=== PATIENT | male | born 1980 | race Caucasian/White ===

== ENCOUNTER 2023-02-03 01:49 | Day surgery (SDC) | payer BC, SELFPAY ==
[2023-01-23 13:55] VITALS: BMI 28.1
[2023-02-03 11:42] VITALS: BP 124/82; PULSE 50; RESP 20; TEMP 36.1; O2SAT 100
--- NOTE | 2023-02-03 11:54 | PM.HPGS ---
History of Present Illness History of Present Illness Consent: Risks, benefits, and alternatives have been discussed and questions answered. Patient agrees to proceed with procedure. Chief complaint: family hx colon polyps Narrative: Eliceo Kearney is a 42 year old male Presents for colonoscopy. Patient's current weight appetite and bowel movements are normal. Patient denies abdominal pain. He has had no bleeding. Family history is significant that his mother had colon polyps. Paternal grandmother and maternal grandfather both have had colon cancer. Patient presents for neoplasia screening colonoscopy. Review of Systems Review of Systems: Review of systems noncontributory. TAMERA Family History Family History (Updated 02/04/17 @ 08:08 by DOCTOR UNKNOWN) Mother Diabetes mellitus Asthma Father Family history of mental disorder Social History Social History (Updated 10/15/20 @ 12:51 by Jocelin Kerr) Smoking status: Never smoker Alcohol intake: current Drinks per week: 1 Substance use: never Living arrangements: with family Occupation/Education: occupation Additional occupation/education comments: [employer] Gender identity (if verbalized by the patient): Male Spiritual care concerns: No Meds Home Medications and Allergies Home Medications Medication Instructions Recorded Confirmed Type sodium,potassium,mag sulfates 17.5 See Rx Instructions PO .COMPLEX 01/12/23 Rx gram-3.13 gram-1.6 gram oral soln #354 mL (Suprep Bowel Prep Kit) Allergies Allergy/AdvReac Type Severity Reaction Status Date / Time Sulfa (Sulfonamide Allergy Unknown Verified 01/23/23 13:57 Antibiotics) Vital Signs Vital Signs - 24 hr 02/03/23 11:42 Temperature 97.0 F L Pulse Rate 50 L Respiratory Rate 20 Blood Pressure 124/82 Pulse Oximetry 100 Oxygen Delivery Room Air Exam Narrative: Physical exam reveals patient to be alert. Vital signs stable. HEENT exam is unremarkable. Patient is anicteric. Lungs are clear to auscultation and percussion. Heart is without murmur or extra sounds. Abdomen bowel sounds are present soft nontender with no organomegaly. Digital external rectal exam is normal. Assessment and Plan Assessment and plan (1) Family history of colonic polyps: Code(s): Z83.71 - Family history of colonic polyps Status: Acute Assessment and Plan: Patient presents today for screening colonoscopy. Family history is significant as mother has had colon polyps in 2 grandparents have had colon cancer.
[2023-02-03] MEDS: LACTATED RINGERS 1,000 ML 150 ML IV CONT (11:58)
--- NOTE | 2023-02-03 12:24 | P.PNAN_ITS ---
Anes - Initial Pre Proc Eval Procedure: Operation Date: 02/03/23 13:00 Proposed Procedures p Colonoscopy - Maulik Leonard MD Date/Time: 02/03/23 12:24 Surgeon: Maulik Leonard MD Pre Op Diagnosis: family hx colon polyps Patient Data Age: 42 Gender: M Height: 1.8 m Weight: 91.6 kg Last Vital Signs Temp 97.0 F L 02/03/23 11:42 Pulse 50 L 02/03/23 11:42 Resp 20 02/03/23 11:42 BP 124/82 02/03/23 11:42 Pulse Ox 100 02/03/23 11:42 O2 Del Method Room Air 02/03/23 11:42 Allergies Allergy/AdvReac Type Severity Reaction Status Date / Time Sulfa (Sulfonamide Allergy Unknown Verified 02/03/23 12:01 Antibiotics) Patient hx anesthesia problems: none Family hx anesthesia problems: none Results Review: All pre-operative results and documents have been reviewed as part of the pre- operative evaluation. [facility] Family History Family History (Updated 02/04/17 @ 08:08 by DOCTOR UNKNOWN) Mother Diabetes mellitus Asthma Father Family history of mental disorder Social History Social History (Updated 10/15/20 @ 12:51 by Jocelin Kerr) Smoking status: Never smoker Alcohol intake: current Drinks per week: 1 Substance use: never Living arrangements: with family Occupation/Education: occupation Additional occupation/education comments: [employer] Gender identity (if verbalized by the patient): Male Spiritual care concerns: No Anes - Eval Final PreProcedure Day of Procedure 02/03/23 12:24 Patient weight: overweight Heart: regular rate and rhythm Lungs: clear to auscultation Neurological: alert and oriented Last oral intake: >/= 8 hours ASA classification: II Emergent: no Anesthetic plan: proceed Anesthesia type and monitoring: general GIVS and standard monitoring Results Review: All pre-operative results and documents have been reviewed as part of the pre- operative evaluation. Informed Consent: The patient's anesthetic plan and its attendant risks and benefits were discussed with the patient/family/POA. Questions were solicited and answers provided to the satisfaction of the patient/family/POA.
[2023-02-03 13:41] VITALS: BP 90/57; PULSE 56; RESP 17; O2SAT 97
[2023-02-03 13:51] VITALS: BP 107/75; PULSE 55; RESP 18; O2SAT 99
[2023-02-03 14:01] VITALS: BP 108/71; PULSE 50; RESP 15; O2SAT 100
== END 2023-02-03 14:09 | disposition home or self-care (01) ==
PROVIDERS: PCP Physician Assistant; Visit Provider Internal Medicine Gastroenterology
PROC: 0DJD8ZZ Inspection of Lower Intestinal Tract, Via Natural or Artificial Opening Endoscopic (ICD-10-PCS; CPT 45378; principal; 2023-02-03 13:00)
DX: Z12.11 Encounter for screening for malignant neoplasm of colon (principal); K64.8 Other hemorrhoids; Z83.71 Family history of colonic polyps
CPT/HCPCS: 45378; J2704; J7120

== ENCOUNTER 2023-05-16 08:50 | Emergency (ER) | payer BC, SELFPAY ==
--- NOTE | ~2023-05-16 | XR_ITS ---
XR chest 2V DATE: 05/16/2023 09:06 INDICATION: Cough, shortness of breath TECHNIQUE: PA and lateral views COMPARISON: None FINDINGS: Normal heart size. No hilar or mediastinal enlargement. There is patchy left lower lobe infiltrate, suggesting left lower lobe pneumonia. The remaining lung marr are clear. No pleural effusion or pulmonary vascular congestion or pneumothorax is detected. IMPRESSION: Patchy left lower lobe infiltrate Reviewed, dictated and finalized at location A.
[2023-05-16 08:58] VITALS: BP 128/88; PULSE 85; RESP 16; TEMP 36.2; O2SAT 94
--- NOTE | 2023-05-16 09:00 | ED.URI ---
HPI - URI/Sore Throat General Chief Complaint: Upper Respiratory Infection Stated Complaint: Trouble breathing Time Seen by Provider: 05/16/23 09:03 Source: patient, RN notes reviewed and old records reviewed Mode of arrival: ambulatory Limitations: no limitations History of Present Illness HPI Narrative: 42-year-old male presents to the [facility] with complaints of cough and shortness of breath. Symptoms started a couple of weeks ago. States they been gradually getting worse. Denies any fevers, chest pain, abdominal pain. Had seen his doctor mid April. States yesterday he called his primary care provider and they just called in a different antibiotic and a steroid. Patient states he has been using his albuterol nebulizer more often, only has 3 ampules left, requesting a refill. Per medical record had been prescribed amoxicillin 875 twice a day on May 04. Yesterday was prescribed doxycycline and prednisone from his primary care provider at [facility]. Onset (ago): week(s) Related Data Allergies Allergy/AdvReac Type Severity Reaction Status Date / Time Sulfa (Sulfonamide Allergy Unknown Verified 02/03/23 12:01 Antibiotics) Review of Systems Review of Systems: All systems reviewed & are unremarkable except as noted in HPI and below Constitutional: Constitutional: Reports no additional constitutional complaints Eyes: Eyes: Reports no additional eye complaints ENT: Reports system reviewed and no additional complaints, except as documented Cardiovascular: Cardiovascular: Reports no additional cardiovascular complaints, Denies chest pain and Denies dyspnea Respiratory: Respiratory: Reports as per HPI, Reports chest congestion, Reports cough, Reports dyspnea and Reports dyspnea on exertion Gastrointestinal: Gastrointestinal: Reports no additional gastrointestinal complaints, Denies abdominal pain, Denies nausea and Denies vomiting Musculoskeletal: Musculoskeletal: Reports no additional musculoskeletal complaints Integumentary/Breasts: Skin/Breast: Reports system reviewed and no additional complaints, except as docu Neurologic: Reports system reviewed and no additional complaints, except as documented Psychiatric: Psychiatric: Reports no additional psychiatric complaints Allergic/Immunologic: Allergic/Immunologic: Reports no additional allergic/immunologic complaints PMF Past Medical History Medical History Asthma Family History Family History Mother Diabetes mellitus Asthma Father Family history of mental disorder Social History Social History Smoking status: Never smoker Alcohol intake: current Drinks per week: 1 Substance use: never Living arrangements: with family Occupation/Education: occupation Additional occupation/education comments: [employer] Gender identity (if verbalized by the patient): Male Spiritual care concerns: No Comments At the time of my signature, I reviewed and agree with the nursing past medical, surgical, social, and family history. There is no relevant family history pertinent to the patient complaint. Exam Const: General: cooperative, healthy appearing, comfortable, no acute distress, well developed, alert and well nourished Nutritional Appearance: well nourished Orientation/consciousness: patient oriented x3 Limitations: no limitations HENMT: Head: normal to inspection Ears: hearing grossly normal bilaterally, external ears normal, TM's normal bilaterally, EAC's normal, mastoids normal and no periauricular adenopathy Face/Nose/Sinus: Normal external nose present, Normal nares present, Normal nasal mucous membranes and turbinates present, normal facial exam and face symmetric Face and sinus: normal facial exam and face symmetric Mouth: Yes Normal oral and palatal mucos
== END 2023-05-16 09:19 | disposition home or self-care (01) ==
PROVIDERS: Emergency Provider Nurse Practitioner; PCP Physician Assistant
DX: J18.1 Lobar pneumonia, unspecified organism (principal); J45.909 Unspecified asthma, uncomplicated
CPT/HCPCS: 71046; 99213; G0463

== ENCOUNTER 2023-05-27 13:46 | Outpatient (CLI) | payer BC, SELFPAY ==
--- NOTE | ~2023-05-27 | XR_ITS ---
EXAMINATION: XR chest 2V DATE: 05/27/2023 13:56 INDICATION: Cough. TECHNIQUE: Frontal and lateral views of the chest were obtained. COMPARISON: Chest 2 views 05/16/2023 FINDINGS: There are mild airspace opacities in left lower lobe. No pleural effusion or pneumothorax. The heart size is normal. IMPRESSION: 1. Mild airspace opacities in left lower lobe with interval improvement, consistent with pneumonia. Reviewed, dictated and finalized at location E. S WASHER IMPRESSION: 1. Mild airspace opacities in left lower lobe with interval improvement, consis tent with pneumonia.
== END 2023-05-27 13:47 ==
PROVIDERS: PCP Physician Assistant; Visit Provider Physician Assistant
DX: R05.9 Cough, unspecified (principal); J98.4 Other disorders of lung
CPT/HCPCS: 71046

== ENCOUNTER 2023-07-18 01:47 | Emergency (ER) | payer BC, SELFPAY ==
--- NOTE | ~2023-07-18 | CT_ITS ---
EXAMINATION: CT cervical spine wo con DATE: 07/18/2023 02:25 INDICATION: Neck injury. Fall. TECHNIQUE: Computed tomography (CT) of the cervical spine was performed without intravenous contrast. Automated exposure control and iterative reconstruction technique were employed. The dose-length pro duct was 471.59 mGy-cm. COMPARISON: None FINDINGS: Bone alignment is normal. Vertebral body heights are normal. There is moderately decreased disc height at C5-C6 and C6-C7. The following disc levels are specifically discussed: C2-C3: There is mild bilateral uncovertebral joint osteoarthritis. There is mild bilateral facet join t osteoarthritis. There is no neural foraminal stenosis. There is no central canal stenosis. C3-C4: There is mild bilateral uncovertebral joint osteoarthritis. There is mild bilateral facet join t osteoarthritis. There is no neural foraminal stenosis. There is no central canal stenosis. C4-C5: There is mild bilateral uncovertebral joint osteoarthritis. There is mild bilateral facet join t osteoarthritis. There is no neural foraminal stenosis. There is no central canal stenosis. C5-C6: There is severe bilateral uncovertebral joint osteoarthritis. There is mild bilateral facet perlita int osteoarthritis. There is mild bilateral neural foraminal stenosis. There is mild central canal st enosis. C6-C7: There is severe bilateral uncovertebral joint osteoarthritis. There is moderate bilateral face t joint osteoarthritis. There is mild bilateral neural foraminal stenosis. There is mild central magda l stenosis. C7-T1: There is no uncovertebral joint osteoarthritis. There is moderate right and mild left facet perlita int osteoarthritis. There is no neural foraminal stenosis. There is no central canal stenosis. IMPRESSION: 1. No fracture. 2. Moderate cervical spondylosis. Reviewed, dictated and finalized at location A. CHER FEEDER
--- NOTE | ~2023-07-18 | CT_ITS ---
EXAMINATION: CT brain wo con DATE: 07/18/2023 02:24 INDICATION: Syncope. TECHNIQUE: Computed tomography (CT) of the head was performed without intravenous contrast. The mA wa s adjusted according to patient size. Iterative reconstruction technique was employed. The dose-lengt h product was 1210.67 mGy-cm. COMPARISON: None FINDINGS: There is no intracranial hemorrhage, acute infarction, or abnormal intracranial mass lesion . The ventricles are normal in size. The mastoid air cells are normal. There is mucosal thickening in the paranasal sinuses. The orbits are normal. IMPRESSION: 1. Normal brain. Reviewed, dictated and finalized at location A. DISTRIBUTION CLERK IMPRESSION: 1. Normal brain.
[2023-07-18 02:02] VITALS: BP 132/94; PULSE 91; RESP 17; TEMP 36.1; O2SAT 100
--- NOTE | 2023-07-18 02:08 | ED.GENADULT ---
HPI - General Adult General Chief complaint: Alcohol Stated complaint: ETOH Time Seen by Provider: 07/18/23 01:48 History of Present Illness HPI narrative: Patient prefer old gentleman presents to emergency department with chief complaint of head injury and alcohol intoxication per the family the patient had been drinking this evening with friends fell the way back home and had a abrasion to his forehead patient was brought home and had 2 more falls and was very slow to respond. EMS was called the patient was transported to the emergency department. Per the family the patient had positive loss of consciousness with the episodes occurred Related Data Allergies Allergy/AdvReac Type Severity Reaction Status Date / Time Sulfa (Sulfonamide Allergy Unknown Verified 02/03/23 12:01 Antibiotics) Review of Systems Review of Systems: A 10 system review of systems was completed on the patient and is negative except for what is stated in the HPI. Nursing and ancillary documentation was reviewed. [facility] Past Medical History Medical History Asthma Family History Family History Mother Diabetes mellitus Asthma Father Family history of mental disorder Social History Social History Smoking status: Never smoker Alcohol intake: current Drinks per week: 1 Substance use: never Living arrangements: with family Occupation/Education: occupation Additional occupation/education comments: [employer] Gender identity (if verbalized by the patient): Male Spiritual care concerns: No Exam Narrative: GENERAL: Well-appearing, well-nourished, and in no acute distress. HEAD: Normocephalic, contusion/abrasion to the right forehead EYES: PERRLA and EOMI. ENT: Nares clear, no rhinorrhea or epistaxis. Mucous membranes moist. NECK: Supple. CHEST: Clear to auscultation. No respiratory distress. HEART: Regular rate and rhythm. No murmur heard. Normal peripheral pulses. ABDOMEN: Soft, nontender, nondistended, normal active bowel sounds. EXTREMITIES: Normal range of motion. No edema. SKIN: Warm, dry, no rash. NEURO: No focal deficits. Alert answering questions repeating answers slurred words GCS 14. PSYCH: Normal mood and affect. Course Vital Signs Vital signs: Vital Signs Temperature 36.1 C L 07/18/23 02:02 Pulse Rate 91 07/18/23 02:02 Respiratory Rate 17 07/18/23 02:02 Blood Pressure 132/94 H 07/18/23 02:02 Pulse Oximetry 100 07/18/23 02:02 Oxygen Delivery Room Air 07/18/23 02:02 Temperature 36.1 C L 07/18/23 02:02 Pulse Rate 91 07/18/23 02:02 Respiratory Rate 17 07/18/23 02:02 Blood Pressure 132/94 H 07/18/23 02:02 Pulse Oximetry 100 07/18/23 02:02 Oxygen Delivery Room Air 07/18/23 02:02 Medical Decision Making MDM Narrative Medical decision making narrative: Differential diagnosis is a disc issue seems to encompass her to come spine fracture cervical spine fracture CT C-spine showed no evidence of fracture CT head showed possibly small subdural hematoma Laboratory studies were obtained showed ETOH and was 394 Due to the possibility of subdural and he patient currently GCS 14 case was discussed with [facility] Vital Signs Vital Signs: Vital Signs Temperature 36.1 C L 07/18/23 02:02 Pulse Rate 91 07/18/23 02:02 Respiratory Rate 17 07/18/23 02:02 Blood Pressure 132/94 H 07/18/23 02:02 Pulse Oximetry 100 07/18/23 02:02 Oxygen Delivery Room Air 07/18/23 02:02 Temperature 36.1 C L 07/18/23 02:02 Pulse Rate 91 07/18/23 02:02 Respiratory Rate 17 07/18/23 02:02 Blood Pressure 132/94 H 07/18/23 02:02 Pulse Oximetry 100 07/18/23 02:02 Oxygen Delivery Room Air 07/18/23 02:02 Lab Data 07/18/23 02:02
[2023-07-18 02:09] LABS: Basophils Percent Auto 0.5 % (0.2-1.2); Eosinophils Absolute Auto 0.2 K/mm3 (0-0.3); Eosinophils Percent Auto 2.3 % (0-4.4); Hematocrit 44.4 % (42.0-52.0); Hemoglobin 14.7 g/dL (14.0-18.0); Immature Granulocyte Absolute 0.03 K/mm3 (0.00-0.031); Immature Granulocyte Percent A 0.4 % (0-0.5); Lymphocytes Absolute Auto 2.11 K/mm3 (0.9-3.2); Lymphocytes Percent Auto 26.7 % (18.3-44.2); Mean Corpuscular HGB Conc 33.1 g/dl (32-36); Mean Corpuscular Hemoglobin 28.4 pg (26-34); Mean Corpuscular Volume 85.9 fl (80-100); Mean Platelet Volume 9.4 fl (7.4-10.4); Monocytes Absolute Auto 0.6 K/mm3 (0.1-0.6); Monocytes Percent Auto 7.5 % (2.6-8.5); Neutrophils Percent Auto 62.6 % (45.5-73.1); Platelet Count Result 267 k/mm3 (150-375); Red Blood Count 5.17 M/mm3 (4.6-6.20); Red Cell Distribution Width 13.6 % (11.5-14.5); White Blood Count 7.9 K/mm3 (4.5-10.0)
[2023-07-18 02:21] LABS: Alanine Aminotransferase 47 U/L (6-50); Alkaline Phosphatase 60 U/L (38-126); Anion Gap 17 mmol/L (8-16); Aspartate Amino Transferase 42 U/L (17-59); Bilirubin,Total 0.4 mg/dL (0.2-1.3); Blood Urea Nitrogen 12 mg/dL (9-20); Calcium 8.8 mg/dL (8.4-10.2); Carbon Dioxide 25 mmol/L (22-30); Chloride 97 mmol/L (98-107); Estimated CRCL calculation 108 ml/min; Estimated Glomerular Filt Rate > 60; Glucose 131 mg/dL (65-110); Potassium 3.4 mmol/L (3.4-5.0); Sodium 139 mmol/L (137-145)
[2023-07-18 02:41] LABS: Ethanol 394 mg/dL (<10)
[2023-07-18 03:25] VITALS: BP 125/72; PULSE 116; RESP 15
== END 2023-07-18 03:59 | disposition short-term general hospital (02) ==
PROVIDERS: Emergency Provider Emergency Medicine; PCP Physician Assistant
DX: S06.5XAA Traumatic subdural hemorrhage with loss of consciousness status unknown, initial encounter (principal); F10.120 Alcohol abuse with intoxication, uncomplicated; Y90.8 Blood alcohol level of 240 mg/100 ml or more; W18.39XA Other fall on same level, initial encounter
CPT/HCPCS: 36415; 70450; 72125; 80053; 80307; 85025; 99291

== ENCOUNTER 2024-06-20 08:19 | Outpatient (CLI) | payer BC, SELFPAY ==
--- NOTE | ~2024-06-20 | US_ITS ---
EXAMINATION: US right upper quadrant DATE: 06/20/2024 08:36 INDICATION: Right upper quadrant abdominal pain. TECHNIQUE: Multiple grayscale and Doppler ultrasound images of the abdomen were obtained. COMPARISON: None FINDINGS: The pancreas is obscured by bowel gas. There is diffuse hepatic steatosis. There is normal flow in main portal vein. The gallbladder is normal in size. No gallstones or gallbladder wall thicke chyna. There is no sonographic Mcmillan's sign. The common duct is normal and measures 4 mm. IMPRESSION: 1. Diffuse hepatic steatosis. Reviewed, dictated and finalized at location A. SCIENCE TECHNICIAN
== END 2024-06-20 08:20 | disposition home or self-care (01) ==
PROVIDERS: PCP Physician Assistant; Visit Provider Physician Assistant
DX: R10.11 Right upper quadrant pain (principal); M54.6 Pain in thoracic spine; K76.0 Fatty (change of) liver, not elsewhere classified
CPT/HCPCS: 76705

== ENCOUNTER 2024-06-21 15:48 | Outpatient (CLI) | payer BC, SELFPAY ==
--- NOTE | ~2024-06-21 | XR_ITS ---
Clinical Indication: Chest pain PA and lateral views of the chest: Comparison: 05/27/2023 Findings: The lungs are clear, without evidence of focal consolidation or pleural effusion. Cardiome diastinal silhouette is within normal limits. Bones and soft tissues are unremarkable. Impression: Normal chest. Reviewed, dictated and finalized at location . ARY AIDE COOK Impression: Normal chest.
--- NOTE | ~2024-06-21 | XR_ITS ---
Thoracic spine: Clinical Indication: Back pain AP and lateral views were performed. No fracture is seen. There is normal alignment of the vertebrae. The intervertebral disc spaces appe ar normal. Paravertebral soft tissues appear normal. Impression: No significant abnormalities noted. Reviewed, dictated and finalized at [facility]. BUNCH MAKER Impression: No significant abnormalities noted.
== END 2024-06-21 15:49 | disposition home or self-care (01) ==
LOC: GOSHIMG 15:48
PROVIDERS: PCP Physician Assistant; Visit Provider Physician Assistant
DX: R07.89 Other chest pain (principal); M54.6 Pain in thoracic spine
CPT/HCPCS: 71046; 72070

== ENCOUNTER 2025-07-18 09:43 | Emergency (ER) | payer BC, SELFPAY ==
[2025-07-18 10:11] VITALS: BP 118/75; PULSE 82; RESP 16; TEMP 36.1; O2SAT 98
[2025-07-18 10:36] LABS: EDCOVIDSCREEN Negative (Negative); EDINFLUASCREEN Negative (Negative); EDINFLUBSCREEN Negative (Negative)
--- NOTE | 2025-07-18 10:59 | ED.URI ---
HPI - URI/Sore Throat General Chief Complaint: Upper Respiratory Infection Stated Complaint: Chest Cold Time Seen by Provider: 07/18/25 10:30 Source: patient and RN notes reviewed Mode of arrival: ambulatory Limitations: no limitations History of Present Illness HPI Narrative: 44-year-old male patient presents to the [facility] complaining of upper respiratory symptoms for 2 days. Patient reports, congestion, chest congestion, mild shortness of breath, and cough. Patient has any fevers body aches, chills, nausea vomiting, chest pain, difficulty breathing or any other symptoms. Patient reports a history of pneumonia. Patient taking [id number] cold and flu medication at relief. Related Data Allergies Allergy/AdvReac Type Severity Reaction Status Date / Time Sulfa (Sulfonamide Allergy Unknown Verified 07/18/25 10:12 Antibiotics) Review of Systems Review of Systems: CONSTITUTIONAL: Denies fever, chills, or sweats. EYES: Denies visual changes, redness, or discharge. ENT: Denies rhinorrhea, sore throat, or otalgia. Positive for congestion CARDIOVASCULAR: Denies chest pain, palpitations, or edema. RESPIRATORY: Positive for cough and dyspnea. GASTROINTESTINAL: Denies abdominal pain, nausea, vomiting, or diarrhea. GENITOURINARY: Denies dysuria or hematuria. SKIN: Denies rash or itching. MUSCULOSKELETAL: Denies back pain, joint pain, or myalgia. NEUROLOGIC: Denies headache, numbness, or weakness. PSYCHIATRIC: Denies anxiety or depression. All other systems reviewed are negative, except as documented in HPI. COUNT INCLUDES THE [facility] Past Medical History Medical History Asthma Family History Family History Mother Diabetes mellitus Asthma Father Family history of mental disorder Social History Social History Smoking status: Never smoker Alcohol intake: current Drinks per week: 1 Substance use: never Living arrangements: with family Occupation/Education: occupation Additional occupation/education comments: [employer]formerly [employer] Gender identity (if verbalized by the patient): Male Spiritual care concerns: No Comments At the time of my signature, I reviewed and agree with the nursing past medical, surgical, social, and family history. There is no relevant family history pertinent to the patient complaint. Exam Narrative: GENERAL: This is a well-nourished, well-developed adult, in no apparent distress. They are non ill-appearing, nontoxic appearing. HEAD: normocephalic, atraumatic. EYES: Sclera clear/white. Conjunctiva normal. Vision is grossly intact. Extraocular movements intact EARS: External ears normal, auditory canals clear and without drainage, TMs normal without perforation. Hearing grossly intact. NOSE: External nose normal with no obvious nasal discharge, nasal turbinates erythematous, no rhinorrhea. THROAT: Mucous membranes moist, posterior pharynx erythematous with PND. Uvula midline. NECK: Neck supple, non-tender without lymphadenopathy, masses or thyromegaly. CARDIOVASCULAR: Regular rate and rhythm without murmurs, gallops, or rubs. RESPIRATORY: Clear to auscultation. Breath sounds equal bilaterally. No wheezes, rales, or rhonchi. Respiratory rate normal, respiratory effort nonlabored, no respiratory distress SKIN: warm, Dry, intact with no suspicious lesions or rash, good texture and turgor. NEURO: awake, alert, and oriented to person, place and time. There were no obvious focal neurologic abnormalities. EXTREMITIES: No joint tenderness, effusion, or edema noted. BACK: Nontender without deformity. Course Course Level of Care: Express Care Visit Vital Signs Vital signs: Vital Signs Temperature 96.9 F L 07/18/25 10:11 Pulse Rate 82 07/18/25 10:11 Respiratory Rate 16 07/18/25 10:11 Blood Pressure 118/75 07/18/25 10:11 Pulse Oximetry 98 07/18/25 10:11 Temperature 96.9 F L 07/18/25 10:11 Pulse Rate 82 07/18/25 10:11 Respiratory Rate 16 07/18/25 10:11 Blood Pressure 118/75 07/18/25 10:11 Pulse Oximetry 98 07/18/25 10:11 [facility] Narrative Medical decision making narrative: Rapid COVID and flu were negative. Patient likely has a viral bronchitis. Lung sounds clear to auscultation cone the adventitious lung sounds, patient nontoxic appearing, no apparent distress, afebrile. Given his symptoms give a course of prednisone and benzonatate tablets. Discussed physical exam findings. Advised supportive measures and signs/symptoms to go to the ER. Pt is appropriate for outpt treatment and f/u. Differential Diagnosis Differential Diagnosis: Differential diagnostic considerations for upper respiratory infection include upper respiratory infection, croup, otitis media, sinusitis, viral infection, bronchitis, influenza, pharyngitis, strep, uvulitis. Lab Data MDM Lab Attestation statement: I personally reviewed the patient's lab results. Labs: Lab Results 07/18/25 Range/Units 10:34 POC Influenza A Ag Negative (Negative) POC Influenza B Ag Negative (Negative) POC SARS CoV-2 Ag Negative (Negative) Critical Care Time Critical Care Time Critical Care Time: No Discharge Plan Discharge Clinical Impression: Bronchitis Patient Disposition: Home Condition: Stable Instructions: Antibiotic Form, Acute Bronchitis (ED) Additional Instructions: Avoid crowds until you do not have a fever and symptoms are improved Take prednisone as directed. Use benzonatate tablets as needed for cough. Recommend Zyrtec or Claritin for congestion. Tylenol and Motrin as needed for pain or fevers. Follow instructions on the bottle. Symptomatic treatment includes: rest, fluids, and increase humidity of the air at home. Follow up with your primary care provider 5-7 days. Go to the ER for worsening symptoms, worsening chest pains, difficulty breathing, vomiting, weakness, or serious concerns Patient Language: Sinhala Prescriptions: New benzonatate 200 mg capsule 200 mg PO TID PRN (Reason: cough) Qty: 20 0RF prednisone 20 mg tablet 40 mg PO DAILY 5 Days Qty: 10 0RF Follow-up/Referrals: Joel,DUC Negron [Primary Care Provider, Unknown] Time of Disposition: 10:57
== END 2025-07-18 11:00 | disposition home or self-care (01) ==
PROVIDERS: PCP Physician Assistant
DX: J40 Bronchitis, not specified as acute or chronic (principal); Z20.822 Contact with and (suspected) exposure to COVID-19
CPT/HCPCS: 87426; 87804; 99213; G0463